=== PATIENT | female | born 1970 | race African-American/Black ===

== ENCOUNTER 2017-01-06 05:24 | Inpatient (IN) | payer MEDICAID, OTHER ==
[~2017-01-06] VITALS: Ht 165.1 cm; Wt 77.1 kg
[~2017-01-06 05:24] MED LIST: ASPI-1079 PO; OMEP20TA2 PO
[2017-01-06] MEDS ORDERED: ONDANSETRON HCL 4MG/2ML VIAL IV STA (06:25)
[2017-01-06] MEDS ORDERED: KETOROLAC 30MG/ML VIAL IV STA (06:25)
[2017-01-06] MEDS ORDERED: SODIUM CHLORIDE 0.9% 1,000 ML IV ONE (06:25)
[2017-01-06] MEDS ORDERED: MORPHINE SULFATE 4 MG/ML CPJ (NOT FOR IM USE) IV STA (06:25)
[2017-01-06] MEDS ORDERED: VANCOMYCIN 1 G PREMIX 200 ML IV ONE (06:30)
[2017-01-06] MEDS ORDERED: PIPERACILLIN/TAZ 3.375G PREMIX 50 ML IV ONE (06:30)
[2017-01-06 07:16] LABS: INR 1.1; PROTHROMBIN TIME 11.1 sec (9.4-11.6)
[2017-01-06 07:18] LABS: HEMATOCRIT. 29.7 % (36.0-48.0); HEMOGLOBIN. 9.4 g/dL (12.0-16.0); MEAN CORPUSCULAR HEMOGLOBIN 23.2 pg (28.0-32.0); MEAN CORPUSCULAR VOLUME 73.4 fL (81.0-99.0); MEAN PLATELET VOLUME 8.6 fl (7.4-10.4); PLATELET 303 x1000/uL (130-400); RED BLOOD CELL COUNT 4.05 mill/uL (4.2-5.4); RED CELL DISTRIBUTION WIDTH 16.5 % (11.6-14.6)
[2017-01-06 07:19] LABS: CLARITY URINE CLEAR (CLEAR); COLOR URINE YELLOW (YELLOW); GLUCOSE URINE NEGATIVE (NEGATIVE); KETONES URINE 2+ (NEGATIVE); LEUKOCYTE ESTERASE URINE NEGATIVE (NEGATIVE); NITRITE URINE NEGATIVE (NEGATIVE); OCCULT BLOOD URINE 3+ (NEGATIVE); PH URINE 6.5 (4.5-8.0); PROTEIN URINE 1+ (NEGATIVE); SPECIFIC GRAVITY URINE 1.016 (1.005-1.030)
[2017-01-06 07:23] LABS: CARBON DIOXIDE 24 mEq/L (21-32); CHLORIDE 100 mEq/L (98-107)
[2017-01-06 07:25] LABS: TROPONIN I < 0.02 ng/mL (0.00-0.04)
[2017-01-06 07:35] LABS: HCG SCREEN NEGATIVE
[2017-01-06 07:45] LABS: ATYPICAL LYMPHOCYTES 1; PLATELET ESTIMATE NORMAL
[2017-01-06] MEDS ORDERED: MORPHINE SULFATE 4 MG/ML CPJ (NOT FOR IM USE) IV ONE (07:45)
[2017-01-06] MEDS ORDERED: SODIUM CHLORIDE 0.9% 10ML VIAL ONE (10:00)
[2017-01-06] MEDS ORDERED: IOHEXOL-300 100 ML BOTTLE ONE (10:00)
[2017-01-06 11:53] VITALS: BP 139/87
[2017-01-06 12:00] VITALS: BP 139/87
[2017-01-06] MEDS ORDERED: AMLO2.5T45 PO (12:25)
[2017-01-06] MEDS ORDERED: MORPHINE SULFATE 4 MG/ML CPJ (NOT FOR IM USE) IV PRN (14:30)
[2017-01-06] MEDS ORDERED: ENOXAPARIN 40MG/0.4ML SYR SUBCUT SCH (14:45)
[2017-01-06] MEDS: HYDROCODONE/ACETAMINOPHEN 5/325MG TABLET PO PRN (14:48)
[2017-01-06] MEDS: AMLODIPINE 10MG TABLET PO SCH (14:48)
[2017-01-06] MEDS: PIPERACILLIN/TAZ 3.375G PREMIX 50 ML IV SCH ×2 (15:52→21:13)
[2017-01-06 16:00] VITALS: BP 107/64
[2017-01-06] MEDS: VANCOMYCIN 1 G PREMIX 200 ML IV SCH (17:43)
[2017-01-06 20:00] VITALS: BP 113/68
[2017-01-07] VITALS: BP 100/58
[2017-01-07] MEDS: HYDROCODONE/ACETAMINOPHEN 5/325MG TABLET PO PRN ×3 (01:12→09:47)
[2017-01-07 04:00] VITALS: BP 112/73
[2017-01-07] MEDS: VANCOMYCIN 1 G PREMIX 200 ML IV SCH (04:46)
[2017-01-07] MEDS: PIPERACILLIN/TAZ 3.375G PREMIX 50 ML IV SCH (05:23)
[2017-01-07 06:50] LABS: BASOPHILS % 0.3 % (0.0-2.0); EOSINOPHILS % 0.1 % (0.0-5.0); HEMATOCRIT. 29.4 % (36.0-48.0); HEMOGLOBIN. 9.3 g/dL (12.0-16.0); LYMPHOCYTES % 8.9 % (20.0-50.0); MEAN CORPUSCULAR HEMOGLOBIN 23.5 pg (28.0-32.0); MEAN CORPUSCULAR VOLUME 73.8 fL (81.0-99.0); MEAN PLATELET VOLUME 8.9 fl (7.4-10.4); MONOCYTES % 11.5 % (2.0-8.0); NEUTROPHILS % 79.2 % (40.0-76.0); PLATELET 360 x1000/uL (130-400); RED BLOOD CELL COUNT 3.98 mill/uL (4.2-5.4); RED CELL DISTRIBUTION WIDTH 16.3 % (11.6-14.6)
[2017-01-07 07:15] LABS: CARBON DIOXIDE 26 mEq/L (21-32); CHLORIDE 103 mEq/L (98-107)
[2017-01-07] MEDS: IPRATROPIUM/ALBUTEROL 0.5-3(2.5)MG/3ML NEB HHN SCH ×3 (07:57→11:36)
[2017-01-07 08:00] VITALS: BP 108/63
[2017-01-07] MEDS: AMLODIPINE 10MG TABLET PO SCH (08:38)
[2017-01-07 13:22] VITALS: BP 115/70
== END 2017-01-07 14:05 | disposition short-term general hospital (02) | DRG 813 ==
LOC: ER 05:24 → ENRESERV 09:55 → EDBEDREQ 10:14 → 5WST 11:02
PROVIDERS: ADMIT Internal Medicine Pulmonary Disease; ATTEND Internal Medicine Pulmonary Disease
DX: T81.31XA Disruption of external operation (surgical) wound, not elsewhere classified, initial encounter (principal); T81.4XXA Infection following a procedure, initial encounter; K56.7 Ileus, unspecified; L02.211 Cutaneous abscess of abdominal wall; N28.1 Cyst of kidney, acquired; I10 Essential (primary) hypertension; F17.210 Nicotine dependence, cigarettes, uncomplicated; Y83.6 Removal of other organ (partial) (total) as the cause of abnormal reaction of the patient, or of later complication, without mention of misadventure at the time of the procedure; F14.90 Cocaine use, unspecified, uncomplicated; J45.909 Unspecified asthma, uncomplicated; J98.11 Atelectasis; N73.9 Female pelvic inflammatory disease, unspecified; Z82.49 Family history of ischemic heart disease and other diseases of the circulatory system; Z82.5 Family history of asthma and other chronic lower respiratory diseases; Z90.49 Acquired absence of other specified parts of digestive tract; Z79.82 Long term (current) use of aspirin; Y92.89 Other specified places as the place of occurrence of the external cause
CPT/HCPCS: 36415; 71010; 74177; 80048; 80053; 81001; 83605; 83690; 84484; 84703; 85025; 85610; 87040; 87070; 87077; 87086; 87186; 87205; 93005; 94640; 96365; 96366; 96367; 96375; 99285; A4216; C1893; J1650; J1885; J2270; J2405; J2543; J3370; J7030; J7050; J7620; Q9967

== ENCOUNTER 2019-01-27 01:26 | Emergency (ER) | payer MEDICAID ==
[~2019-01-27] VITALS: Ht 165.1 cm; Wt 78.0 kg
[~2019-01-27 01:26] MED LIST changes: +AMLO2.5T45 PO
[2019-01-27] MEDS ORDERED: ONDANSETRON HCL 4MG/2ML INJ IV STA (02:05)
[2019-01-27] MEDS ORDERED: MORPHINE SULFATE 4 MG/ML CPJ (NOT FOR IM USE) IV STA (02:05)
[2019-01-27 02:55] LABS: BASOPHILS % 0.5 % (0.0-2.0); EOSINOPHILS % 0.2 % (0.0-5.0); HEMATOCRIT. 37.2 % (36.0-48.0); HEMOGLOBIN. 11.9 g/dL (12.0-16.0); LYMPHOCYTES % 45.6 % (20.0-50.0); MEAN CORPUSCULAR HEMOGLOBIN 24.2 pg (28.0-32.0); MEAN CORPUSCULAR VOLUME 75.6 fL (81.0-99.0); MEAN PLATELET VOLUME 8.8 fl (7.4-10.4); MONOCYTES % 8.4 % (2.0-8.0); NEUTROPHILS % 45.3 % (40.0-76.0); PLATELET 198 x1000/uL (130-400); RED BLOOD CELL COUNT 4.92 mill/uL (4.2-5.4); RED CELL DISTRIBUTION WIDTH 15.7 % (11.6-14.6)
[2019-01-27 02:59] LABS: CLARITY URINE CLOUDY (CLEAR); COLOR URINE YELLOW (YELLOW); KETONES URINE TRACE (NEGATIVE); LEUKOCYTE ESTERASE URINE NEGATIVE (NEGATIVE); NITRITE URINE NEGATIVE (NEGATIVE); OCCULT BLOOD URINE NEGATIVE (NEGATIVE); PROTEIN URINE NEGATIVE (NEGATIVE); SPECIFIC GRAVITY URINE 1.024 (1.005-1.030); UROBILINOGEN URINE 0.2 E.U./dL (0.2-1.0)
[2019-01-27 03:01] LABS: CHLORIDE 113 mEq/L (98-107)
[2019-01-27 03:04] LABS: INR 0.9; PARTIAL THROMBOPLASTIN TIME 26.6 sec (23.4-31.0); PROTHROMBIN TIME 9.6 sec (9.6-11.0)
[2019-01-27] MEDS ORDERED: IOHEXOL-300 100 ML BOTTLE ONE (04:10)
[2019-01-27] MEDS ORDERED: KETOROLAC 30MG/ML VIAL IV ONE (05:00)
[2019-01-27 05:12] VITALS: BP 119/79
== END 2019-01-27 05:20 | disposition home or self-care (01) ==
LOC: ER 02:11
DX: S30.1XXA Contusion of abdominal wall, initial encounter (principal); F17.200 Nicotine dependence, unspecified, uncomplicated; W17.89XA Other fall from one level to another, initial encounter; Y93.39 Activity, other involving climbing, rappelling and jumping off; Y92.9 Unspecified place or not applicable; Z79.82 Long term (current) use of aspirin; Z90.49 Acquired absence of other specified parts of digestive tract; Z90.710 Acquired absence of both cervix and uterus; Z98.890 Other specified postprocedural states
CPT/HCPCS: 36415; 71045; 74177; 80053; 81003; 83690; 85025; 85610; 85730; 86850; 86900; 86901; 96374; 96375; 99284; J1885; J2270; J2405; Q9967; Z7610

== ENCOUNTER 2021-03-31 14:01 | Emergency (ER) | payer MEDICAID ==
[~2021-03-31] VITALS: Ht 165.1 cm; Wt 87.0 kg
[2021-03-31] MEDS ORDERED: KETOROLAC 60MG/2ML VIAL IM STA (15:39)
[2021-03-31] MEDS ORDERED: DIPHENHYDRAMINE 25MG CAPSULE PO ONE (15:45)
[2021-03-31] MEDS ORDERED: DIPH25CA83 PO (18:06)
[2021-03-31] MEDS ORDERED: SULF1TAB48 MT (18:06)
[2021-03-31] MEDS ORDERED: NAPR-681 PO (18:06)
[2021-03-31 18:08] VITALS: BP 153/73
== END 2021-03-31 18:08 | disposition home or self-care (01) ==
LOC: ER 14:01
DX: S63.602A Unspecified sprain of left thumb, initial encounter (principal); S80.01XA Contusion of right knee, initial encounter; M25.461 Effusion, right knee; L03.012 Cellulitis of left finger; F14.10 Cocaine abuse, uncomplicated; F12.10 Cannabis abuse, uncomplicated; Z79.899 Other long term (current) drug therapy; Z90.49 Acquired absence of other specified parts of digestive tract; Z98.890 Other specified postprocedural states; Z90.710 Acquired absence of both cervix and uterus; X58.XXXA Exposure to other specified factors, initial encounter; Y93.89 Activity, other specified; Y92.89 Other specified places as the place of occurrence of the external cause; Y99.8 Other external cause status
CPT/HCPCS: 73130; 73562; 99284

== ENCOUNTER 2025-01-09 17:36 | Inpatient (IN) | payer OTHER ==
[~2025-01-09] VITALS: Ht 167.6 cm; Wt 80.9 kg
[~2025-01-09 17:36] MED LIST changes: +DIPH25CA83 PO; +NAPR-681 PO; +NIFE-32 PO; -OMEP20TA2 PO; +OMEP20TA23 PO; +SULF1TAB48 MT
[2025-01-09 17:41] VITALS: O2SAT 99
[2025-01-09] MEDS ORDERED: KETOROLAC 15MG/ML VIAL IV ONE (18:00)
[2025-01-09] MEDS ORDERED: ONDANSETRON HCL 4MG/2ML INJ IV ONE (18:00)
[2025-01-09 18:33] LABS: BASOPHILS % 0.9 % (0.0-2.0); EOSINOPHILS % 0.3 % (0.0-5.0); HEMATOCRIT. 38.3 % (36.0-48.0); HEMOGLOBIN. 12.2 g/dL (12.0-16.0); LYMPHOCYTES % 14.5 % (20.0-50.0); MEAN PLATELET VOLUME 8.0 fl (7.4-10.4); MONOCYTES % 5.3 % (2.0-8.0); NEUTROPHILS % 79.0 % (40.0-76.0); PLATELET 361 x1000/uL (130-400); RED BLOOD CELL COUNT 5.20 mill/uL (4.2-5.4); RED CELL DISTRIBUTION WIDTH 14.9 % (11.6-14.6)
[2025-01-09 18:49] LABS: CREATININE 0.9 mg/dL (0.6-1.0); UREA NITROGEN BLOOD 10 mg/dL (9-23)
[2025-01-09 18:51] LABS: ASPARTATE AMINOTRANSFERASE 14 IU/L (<34); BILIRUBIN DIRECT 0.1 mg/dL (<=3.0); BILIRUBIN TOTAL 0.5 mg/dL (0.1-1.0); PROTEIN TOTAL 7.8 g/dL (6.0-8.3)
[2025-01-09] MEDS: KETOROLAC 15MG/ML VIAL IV NR (22:50)
[2025-01-09] MEDS: ONDANSETRON HCL 4MG/2ML INJ IV NR (22:50)
[2025-01-10] MEDS ORDERED: MORPHINE SULFATE 2 MG/ML INJ (NOT FOR IM USE) IV PRN ×2 (02:00→08:45)
[2025-01-10] MEDS ORDERED: CLONIDINE 0.1MG TABLET PO PRN (02:00)
[2025-01-10 03:05] VITALS: BP 125/85; PULSE 97; RESP 18; TEMP 35.9732
[2025-01-10 04:00] VITALS: BP 114/69; PULSE 86; RESP 19; TEMP 35.8; O2SAT 97
[2025-01-10 08:00] VITALS: BP 121/81; PULSE 97; RESP 18; TEMP 36.3; O2SAT 98
[2025-01-10] MEDS ORDERED: ONDANSETRON HCL 4MG/2ML INJ IV PRN (08:45)
[2025-01-10] MEDS ORDERED: DIPHENHYDRAMINE 50MG/ML VIAL IV PRN (08:45)
[2025-01-10] MEDS ORDERED: IPRATROPIUM/ALBUTEROL 0.5-3(2.5)MG/3ML NEB HHN PRN (08:45)
[2025-01-10] MEDS: ACETAMINOPHEN 325MG TABLET PO PRN (08:59)
[2025-01-10] MEDS ORDERED: NALOXONE HCL 0.4MG/ML VIAL IV PRN (09:30)
[2025-01-10 12:00] VITALS: BP 109/67; PULSE 93; RESP 18; TEMP 36.4; O2SAT 95
[2025-01-10 16:00] VITALS: BP 104/68; PULSE 83; RESP 18; TEMP 36.4; O2SAT 99
[2025-01-10] MEDS: HYDROMORPHONE HCL/PF 1MG/ML INJ IV PRN (17:39)
[2025-01-10 20:00] VITALS: BP 108/65; PULSE 84; RESP 18; TEMP 36.4; O2SAT 99
[2025-01-11] VITALS: BP 105/58; PULSE 87; RESP 18; TEMP 36.4; O2SAT 99
[2025-01-11 04:00] VITALS: BP 135/83; PULSE 74; RESP 18; TEMP 36.4; O2SAT 99
[2025-01-11 08:00] VITALS: BP 128/85; PULSE 82; RESP 18; TEMP 36.3
[2025-01-11 08:30] LABS: BASOPHILS % 0.2 % (0.0-2.0); EOSINOPHILS % 0.0 % (0.0-5.0); HEMATOCRIT. 36.1 % (36.0-48.0); HEMOGLOBIN. 11.0 g/dL (12.0-16.0); LYMPHOCYTES % 21.7 % (20.0-50.0); MEAN PLATELET VOLUME 8.9 fl (7.4-10.4); MONOCYTES % 11.8 % (2.0-8.0); NEUTROPHILS % 66.3 % (40.0-76.0); PLATELET 329 x1000/uL (130-400); RED BLOOD CELL COUNT 4.94 mill/uL (4.2-5.4); RED CELL DISTRIBUTION WIDTH 15.2 % (11.6-14.6)
[2025-01-11 08:48] LABS: CREATININE 1.3 mg/dL (0.6-1.0); UREA NITROGEN BLOOD 27.0 mg/dL (9-23)
[2025-01-11 12:00] VITALS: BP 125/80; PULSE 80; RESP 19; TEMP 36.4
[2025-01-11 16:00] VITALS: BP 112/76; PULSE 95; RESP 18; TEMP 37.8
[2025-01-11] MEDS: SODIUM CHLORIDE 0.9% 1,000 ML IV SCH (16:10)
[2025-01-11 20:00] VITALS: BP 112/80; PULSE 95; RESP 20; TEMP 36.8; O2SAT 96
[2025-01-11 22:38] LABS: CLARITY URINE CLEAR (CLEAR); COLOR URINE YELLOW (YELLOW); GLUCOSE URINE NEGATIVE (NEGATIVE); KETONES URINE NEGATIVE (NEGATIVE); LEUKOCYTE ESTERASE URINE NEGATIVE (NEGATIVE); NITRITE URINE NEGATIVE (NEGATIVE); OCCULT BLOOD URINE NEGATIVE (NEGATIVE); PH URINE 5.5 (4.5-8.0); PROTEIN URINE NEGATIVE (NEGATIVE); SPECIFIC GRAVITY URINE 1.017 (1.005-1.030); UROBILINOGEN URINE 0.2 E.U./dL (0.2-1.0)
[2025-01-12] VITALS: BP 125/85; PULSE 93; RESP 20; TEMP 36.5; O2SAT 96
[2025-01-12 04:00] VITALS: BP 105/61; PULSE 100; RESP 20; TEMP 36.3; O2SAT 95
[2025-01-12 07:31] LABS: BASOPHILS % 0.5 % (0.0-2.0); EOSINOPHILS % 0.0 % (0.0-5.0); HEMATOCRIT. 35.0 % (36.0-48.0); HEMOGLOBIN. 10.8 g/dL (12.0-16.0); LYMPHOCYTES % 26.1 % (20.0-50.0); MEAN PLATELET VOLUME 9.0 fl (7.4-10.4); MONOCYTES % 11.8 % (2.0-8.0); NEUTROPHILS % 61.6 % (40.0-76.0); PLATELET 313 x1000/uL (130-400); RED BLOOD CELL COUNT 4.71 mill/uL (4.2-5.4); RED CELL DISTRIBUTION WIDTH 15.4 % (11.6-14.6)
[2025-01-12 07:44] LABS: CREATININE 1.2 mg/dL (0.6-1.0); PROTEIN TOTAL 6.7 g/dL (6.0-8.3); UREA NITROGEN BLOOD 21 mg/dL (9-23)
[2025-01-12 07:45] LABS: ASPARTATE AMINOTRANSFERASE 15 IU/L (<34); LACTATE DEHYDROGENASE 144 IU/L (120-246)
[2025-01-12 07:46] LABS: BILIRUBIN DIRECT < 0.1 mg/dL (<=3.0); BILIRUBIN TOTAL 0.2 mg/dL (0.1-1.0); PHOSPHORUS 3.9 mg/dL (2.5-4.9)
[2025-01-12 08:00] VITALS: BP 140/86; PULSE 85; RESP 18; TEMP 36.6; O2SAT 100
[2025-01-12] MEDS ORDERED: TRAM50TA3 MT (11:43)
[2025-01-12] MEDS ORDERED: HYDR-4001 MT (11:43)
[2025-01-12] MEDS ORDERED: TRAMADOL 50MG TABLET PO PRN (11:45)
[2025-01-12] MEDS ORDERED: NALOXONE HCL 0.4MG/ML VIAL IV PRN (11:45)
[2025-01-12] MEDS ORDERED: HYDROCODONE/ACETAMINOPHEN 5/325MG TABLET PO PRN (11:45)
[2025-01-12 12:00] VITALS: BP 118/78; PULSE 88; RESP 19; TEMP 36.4; O2SAT 99
[2025-01-12 16:00] VITALS: BP 126/75; PULSE 93; RESP 18; TEMP 36.6; O2SAT 99
[2025-01-12 16:39] VITALS: BP 126/75; PULSE 93; RESP 18; TEMP 97.8
== END 2025-01-12 17:27 | disposition home or self-care (01) | DRG 254 ==
LOC: ER 17:36 → 6WST 21:57 → EDBEDREQTM 22:02 → EDBEDREQ 22:02 → ENRESERV 23:23 → 6EST 01-10 16:28
PROVIDERS: ADMIT Internal Medicine; ATTEND Internal Medicine
DX: R19.09 Other intra-abdominal and pelvic swelling, mass and lump (principal); N17.9 Acute kidney failure, unspecified; Z59.00 Homelessness unspecified; I10 Essential (primary) hypertension; M25.562 Pain in left knee; J45.909 Unspecified asthma, uncomplicated; F14.10 Cocaine abuse, uncomplicated; N13.30 Unspecified hydronephrosis; T50.8X5A Adverse effect of diagnostic agents, initial encounter; Y92.89 Other specified places as the place of occurrence of the external cause; Z82.49 Family history of ischemic heart disease and other diseases of the circulatory system; Z90.710 Acquired absence of both cervix and uterus
CPT/HCPCS: 36415; 73560; 74176; 74177; 76770; 80048; 80076; 80320; 81003; 82550; 83615; 83735; 84100; 85025; 93005; 94640; 97162; 99285; A4606; J1171; J1885; J2405; J7030; G0480

== ENCOUNTER 2025-01-23 23:33 | Emergency (ER) | payer OTHER ==
[~2025-01-23] VITALS: Ht 162.6 cm; Wt 66.0 kg
[~2025-01-23 23:33] MED LIST changes: -AMLO2.5T45 PO; +HYDR-4001 MT; -NAPR-681 PO; -NIFE-32 PO; -SULF1TAB48 MT; +TRAM50TA3 MT
[2025-01-23 23:35] VITALS: O2SAT 95
[2025-01-24] MEDS ORDERED: HYDROMORPHONE HCL/PF 2MG/ML INJ IM ONE
[2025-01-24] MEDS: HYDROMORPHONE HCL/PF 1MG/ML INJ IM NR (00:25)
[2025-01-24 00:31] LABS: BASOPHILS % 0.6 % (0.0-2.0); EOSINOPHILS % 0.3 % (0.0-5.0); HEMATOCRIT. 39.5 % (36.0-48.0); HEMOGLOBIN. 12.1 g/dL (12.0-16.0); LYMPHOCYTES % 12.9 % (20.0-50.0); MEAN PLATELET VOLUME 8.2 fl (7.4-10.4); MONOCYTES % 5.8 % (2.0-8.0); NEUTROPHILS % 80.4 % (40.0-76.0); PLATELET 286 x1000/uL (130-400); RED BLOOD CELL COUNT 5.30 mill/uL (4.2-5.4); RED CELL DISTRIBUTION WIDTH 15.9 % (11.6-14.6)
[2025-01-24 00:40] LABS: CREATININE 1.0 mg/dL (0.6-1.0); UREA NITROGEN BLOOD 14 mg/dL (9-23)
[2025-01-24 00:42] LABS: ASPARTATE AMINOTRANSFERASE 14 IU/L (<34)
[2025-01-24 00:43] LABS: BILIRUBIN DIRECT < 0.1 mg/dL (<=3.0); BILIRUBIN TOTAL 0.3 mg/dL (0.1-1.0); PROTEIN TOTAL 7.9 g/dL (6.0-8.3)
[2025-01-24] MEDS: IBUPROFEN 800MG TABLET PO NR (01:05)
[2025-01-24 01:15] LABS: CLARITY URINE CLEAR (CLEAR); COLOR URINE YELLOW (YELLOW); PH URINE 7.0 (4.5-8.0); PROTEIN URINE TRACE (NEGATIVE); SPECIFIC GRAVITY URINE 1.015 (1.005-1.030)
[2025-01-24 01:16] LABS: GLUCOSE URINE NEGATIVE (NEGATIVE); KETONES URINE 1+ (NEGATIVE); LEUKOCYTE ESTERASE URINE NEGATIVE (NEGATIVE); NITRITE URINE NEGATIVE (NEGATIVE); OCCULT BLOOD URINE NEGATIVE (NEGATIVE); UROBILINOGEN URINE 0.2 E.U./dL (0.2-1.0)
[2025-01-24 01:17] LABS: RBC URINE NONE SEEN /hpf (0-2); WBC URINE 0-2 /hpf (0-2)
[2025-01-24 01:18] LABS: BACTERIA URINE TRACE; SQUAMOUS EPITHELIAL CELL URINE NONE SEEN /lpf (RARE/1+)
[2025-01-24] MEDS ORDERED: HYDR-4001 MT (01:28)
[2025-01-24 02:10] VITALS: BP 119/78; PULSE 85; RESP 17; TEMP 36.7; O2SAT 96
== END 2025-01-24 02:10 | disposition home or self-care (01) ==
LOC: ER 23:33
DX: R10.9 Unspecified abdominal pain (principal); I10 Essential (primary) hypertension; J45.909 Unspecified asthma, uncomplicated; Z79.82 Long term (current) use of aspirin; Z90.710 Acquired absence of both cervix and uterus; Z90.49 Acquired absence of other specified parts of digestive tract; Z79.899 Other long term (current) drug therapy
CPT/HCPCS: 36415; 99283; 80076; 80048; 81003; 83690; 85025; 96372; Z7610 ×2; J1171; A4606